=== PATIENT | female | born 1935 | race Caucasian/White ===

== ENCOUNTER 2016-04-23 10:38 | Emergency (ER) | payer MEDICARE, OTHER | END 2016-04-23 11:15 | disposition home or self-care (01) | LOC: ER 10:38 | DX: J06.9 Acute upper respiratory infection, unspecified (principal); R05 Cough; I10 Essential (primary) hypertension; J44.9 Chronic obstructive pulmonary disease, unspecified; Z79.899 Other long term (current) drug therapy; Z88.6 Allergy status to analgesic agent; Z88.5 Allergy status to narcotic agent | CPT/HCPCS: 99282; 99284 ==

== ENCOUNTER 2016-06-02 09:57 | Observation (INO) | payer MEDICARE, OTHER ==
[~2016-06-02] VITALS: Ht 162.6 cm; Wt 75.0 kg
[2016-06-02 10:18] LABS: BASO % 0.4 % (0.1-1.2); EOS # 0.1 10_X3_uL (0.0-0.4); EOS % 0.8 % (0.7-5.8); GRAN # 5.2 10_X3_uL (1.6-6.1); GRAN % 71.5 % (34.0-71.1); HEMATOCRIT 26.5 % (34-45); LYMPH # 1.5 10_X3_uL (1.2-3.7); LYMPH % 20.2 % (19.3-51.7); MEAN CORPUSCULAR HGB CONC 28.7 g/dL (32.0-36.0); MEAN CORPUSCULAR VOLUME 73.2 fL (79-95); MEAN PLATELET VOLUME 7.8 fl (7.5-11.5); MONO # 0.5 10_X3_uL (0.2-0.9); MONO % 7.1 % (4.7-12.5); PLATELET COUNT 217 x10_3/uL (182-369); RED BLOOD COUNT 3.62 x10_6/uL (3.9-5.2); RED CELL DISTRIBUTION WIDTH 20.6 % (11.7-14.4); WHITE BLOOD COUNT 7.3 x10_3/uL (4.0-10.0)
[2016-06-02 10:27] LABS: HEMOGLOBIN 7.6 g/dL (11.2-15.7); MEAN CORPUSCULAR HEMOGLOBIN 20.9 pg (27.0-33.0)
[2016-06-02 10:28] LABS: BLOOD UREA NITROGEN 18 mg/dL (7-18); CALCIUM 8.7 mg/dL (8.7-10.7); CARBON DIOXIDE 20 mmol/L (21-32); CREATININE 0.9 mg/dL (0.6-1.3); GLUCOSE,RANDOM 115 mg/dL (70-99); POTASSIUM 4.7 mmol/L (3.5-5.1); SODIUM 139 mmol/L (136-145)
[2016-06-03 07:30] LABS: HEMATOCRIT 34.2 % (34-45); HEMOGLOBIN 10.3 g/dL (11.2-15.7); MEAN CORPUSCULAR HEMOGLOBIN 22.8 pg (27.0-33.0); MEAN CORPUSCULAR HGB CONC 30.1 g/dL (32.0-36.0); MEAN CORPUSCULAR VOLUME 75.8 fL (79-95); MEAN PLATELET VOLUME 8.6 fl (7.5-11.5); RED BLOOD COUNT 4.51 x10_6/uL (3.9-5.2); RED CELL DISTRIBUTION WIDTH 20.3 % (11.7-14.4); WHITE BLOOD COUNT 5.5 x10_3/uL (4.0-10.0)
[2016-06-03 07:47] LABS: SERUM IRON 47 ug/dl (50-170); UIBC 367 ug/dL (135-370)
[2016-06-03 08:40] LABS: FERRITIN 7.62 ng/mL (11-307); FOLATE 11.33 ng/mL (3.17-24.25)
== END 2016-06-03 11:43 | disposition home or self-care (01) ==
LOC: ER 09:57 → MS 11:04 → UNDODEPER 06-03 17:24
PROVIDERS: Internal Medicine; ADMIT Family Medicine
PROC: 30260N1 (ICD-10-PCS; principal; 2016-06-02)
DX: D64.9 Anemia, unspecified (principal); R06.02 Shortness of breath; R42 Dizziness and giddiness; R53.1 Weakness; R53.83 Other fatigue; I10 Essential (primary) hypertension; E11.9 Type 2 diabetes mellitus without complications; M19.90 Unspecified osteoarthritis, unspecified site; Z79.899 Other long term (current) drug therapy; Z88.5 Allergy status to narcotic agent; Z88.6 Allergy status to analgesic agent; Z90.710 Acquired absence of both cervix and uterus
CPT/HCPCS: 36415; 36430; 80048; 82607; 82728; 82746; 83540; 83550; 85025; 86850; 86900; 86901; 86920; 96374; 99070; 99284; 99284-25; G0328-QW; G0378; J7040; P9016

== ENCOUNTER 2016-08-08 17:06 | Emergency (ER) | payer MEDICARE, OTHER | END 2016-08-08 18:53 | disposition home or self-care (01) | LOC: ER 17:06 | DX: M25.552 Pain in left hip (principal); W01.0XXA Fall on same level from slipping, tripping and stumbling without subsequent striking against object, initial encounter; Y92.410 Unspecified street and highway as the place of occurrence of the external cause; Z88.5 Allergy status to narcotic agent; Z88.6 Allergy status to analgesic agent | CPT/HCPCS: 73502; 99283; 99283-25 ==